=== PATIENT | female | born 1990 | race Caucasian/White ===

== ENCOUNTER 2017-04-15 11:11 | Observation (INO) | payer MEDICAID ==
--- NOTE | 2017-04-15 12:22 | EDPHY ---
H & P Time Seen by Provider: 04/15/17 11:45 HPI/ROS: CHIEF COMPLAINT: Possible ectopic HISTORY OF PRESENT ILLNESS: Patient presents with complaints of possible ectopic . She reports right lower quadrant cramping pain, in spotting. Home positive test 3 days ago. Last menstrual period was March 11. This makes her with previous miscarriage. She noticed some increasing spotting and cramping, [facility] a pelvic exam and ultrasound. Ultrasound was inconclusive but suggested ectopic . Sent her to our facility for higher level of care. She has minimal pain. No vomiting. Bleeding less than 1 pad per several hours she says. No other associated complaints or modifying factors NPO as of 10:30 a.m. REVIEW OF SYSTEMS: Ten systems reviewed and are negative unless otherwise noted in the HPI PCP: No PCP. SPECIALISTS: [facility] PAST MEDICAL HISTORY: Previous spontaneous miscarriage a 4 month cessation, 2014 PAST SURGICAL HISTORY: No surgical history SOCIAL HISTORY: Nonsmoker. Occasional marijuana use. Works as a massage therapist. FAMILY HISTORY: Noncontributory EXAMINATION General Appearance: Alert, no distress Head: normocephalic, atraumatic Eyes: Pupils equal and round, no conjunctival pallor or injection ENT, Mouth: Mucous membranes moist Neck: Normal inspection, supple, non-tender Respiratory: Lungs are clear to auscultation. no wheezing, rhonchi or crackles Cardiovascular: Regular rate and rhythm. no murmur Gastrointestinal: Abdomen is soft and nondistended. Mild tenderness in the lower quadrants. No guarding. No tympany rigidity. : Pelvic exam deferred as it [facility] Neurological: A&O, nonfocal, normal gait Skin: Warm and dry, no rash plan. no petechiae or purpura Extremities: Nontender, no pedal edema Psychiatric: Mood and affect normal DIFFERENTIAL DIAGNOSES: Including but not limited to ectopic , heterotopic , intrauterine , missed , incomplete , appendicitis MDM: 11:45 a.m. Pelvic pain in early . Ultrasound pre-hospital suggested a possible right-sided adnexal structure with no confirmation of intrauterine . Patient was sent here for ectopic rule out. Pelvic exam was performed by that provider. Vital signs are within normal limits. She is awake alert no acute distress. No signs of hemorrhaging. I have ordered laboratory studies, OB ultrasound and Rh type. 12:40 p.m. Notified by radiologist Dr. Connell. There is a right-sided viable tubal consistent with gestational age. There is a yolk sac. There is no injury you visualized. Remainder of findings discussed as well. I have paged the on-call OB physician for consultation. The patient has been a very difficult IV access and they are still attempting to obtain IV access. 1:10 p.m. Case discussed with Dr. Garcia. She will evaluate the patient but is requesting HCG quantitative value. They are still attempting to obtain IV access. 1:35 p.m. CBC unremarkable. Chemistry unremarkable. Quantitative level pending. Rh type pending. OB physician is at bedside 1:45 p.m. Case discussed with Dr. Garcia. She has evaluated the patient emergency department. She informs me that the patient disposition is pending as she needs to discuss with her colleagues. Given the high presence of a heartbeat methotrexate is relatively contraindicated. She will discuss further with colleague for disposition planning. 1:55 p.m. Patient is a positive blood type, thus I will discontinue the RhoGAM ordered. Her quantitative HCG is 3460 2:15 p.m. Contacted by OB physician Dr. Garcia. She informs the patient taking the operating room later this evening with Dr. Bourne. Tentatively scheduled for 7: 00 p.m. I have re-evaluated the patient and informed her of this. We discussed strict NPO. We discussed her laboratory studies. She has a positive and I informed her of this. She had multiple questions regarding the surgery that I will defer for the surgeon to answer. At this time she is stable with no acute distress, normal vital signs. She is admitted in stable condition. SUPERVISION: Patient was independently examined, but I discussed the case with my secondary supervising physician Dr. Francois Smoking Status: Never smoked Constitutional: Initial Vital Signs Temperature (C) 97.5 F 04/15/17 11:20 Heart Rate 66 04/15/17 11:20 Respiratory Rate 16 04/15/17 11:20 Blood Pressure 106/64 04/15/17 11:20 O2 Sat (%) 97 04/15/17 11:20 O2 Delivery Mode Room Air Allergies/Adverse Reactions: No Known Allergies Allergy (Unverified 04/15/17 11:21) Home Medications: Medication Instructions Recorded NK [No Known Home Meds] 04/15/17 MDM/Departure - MDM Imaging Results: Imaging Impressions Obstetrics Ultrasound 04/15/17 11:33 Impression: 1. There is a right adnexal ectopic containing a viable embryo at 5 weeks 6 days gestation. There is no evidence of ovarian torsion, and there is only a trace amount of right adnexal free fluid. 2. Heterogeneous endometrial thickening measuring 21 mm, with no evidence of a concurrent IUP. Findings were discussed with Yunior Delvalle PA-C at 12:37 PM, on 04/15/2017. - Depart Disposition: [facility] Inpatient Acute Clinical Impression: Ectopic without intrauterine Qualifiers: Location of ectopic : tubal Laterality: right Qualified Code(s): O00.101 - Right tubal without intrauterine Condition: Good Referrals: NONE *PRIMARY CARE P,. [Primary Care Provider] - As per Instructions
[2017-04-15 13:21] LABS: PLATELET COUNT 265 10^3/uL (150-400)
--- NOTE | 2017-04-15 14:07 | PDCONSULT ---
Life Skills Educator Note: Physician requesting consult: Roberto Caicedo Md Consulting Physician: Laly Levy MD Diagnosis: Right ectopic with cardiac activity Labs hcg 3,460 Please see dictated H&P Laboratory Results 04/15/17 13:05 04/15/17 13:05 04/15/17 04/15/17 04/15/17 13:05 13:05 13:05 WBC 7.00 10^3/uL 10^3/uL (3.80-9.50) RBC 4.27 10^6/uL 10^6/uL (4.18-5.33) Hgb 13.4 g/dL g/dL (12.6-16.3) Hct 40.3 % % (38.0-47.0) MCV 94.4 fL fL (81.5-99.8) MCH 31.4 pg pg (27.9-34.1) MCHC 33.3 g/dL g/dL (32.4-36.7) RDW 12.0 % % (11.5-15.2) Plt Count 265 10^3/uL 10^3/uL (150-400) MPV 10.7 fL fL (8.7-11.7) Neut % (Auto) 54.3 % % (39.3-74.2) Lymph % (Auto) 35.0 % % (15.0-45.0) [place] % (Auto) 7.0 % % (4.5-13.0) Eos % (Auto) 2.6 % % (0.6-7.6) Baso % (Auto) 1.0 % % (0.3-1.7) Nucleat RBC Rel Count 0.0 % % (0.0-0.2) Absolute Neuts (auto) 3.80 10^3/uL 10^3/uL (1.70-6.50) Absolute Lymphs (auto) 2.45 10^3/uL 10^3/uL (1.00-3.00) Absolute Monos (auto) 0.49 10^3/uL 10^3/uL (0.30-0.80) Absolute Eos (auto) 0.18 10^3/uL 10^3/uL (0.03-0.40) Absolute Basos (auto) 0.07 10^3/uL 10^3/uL (0.02-0.10) Absolute Nucleated RBC 0.00 10^3/uL 10^3/uL (0-0.01) Immature Gran % 0.1 % % (0.0-1.1) Immature Gran # 0.01 10^3/uL 10^3/uL (0.00-0.10) Sodium 142 mEq/L mEq/L (135-145) Potassium 4.4 mEq/L mEq/L (3.5-5.2) Chloride 108 mEq/L mEq/L (97-110) Carbon Dioxide 21 mEq/l L mEq/l (22-31) Anion Gap 13 mEq/L mEq/L (8-16) BUN 7 mg/dL mg/dL (7-23) Creatinine 0.5 mg/dL L mg/dL (0.6-1.0) Estimated GFR > 60 Glucose 83 mg/dL mg/dL (70-100) Calcium 9.1 mg/dL mg/dL (8.5-10.4) Lipase 94 IU/L IU/L (23-300) Beta HCG, Quant 3460.30 mIU/mL H mIU/mL (0.00-4.83) Urine Color Urine Appearance Urine pH Ur Specific [place] Urine Protein Urine Ketones Urine Blood Urine Nitrate Urine Bilirubin Urine Urobilinogen Ur Leukocyte Esterase Urine RBC Urine WBC Ur Epithelial Cells Urine Mucus Urine Glucose Patient ABO/Rh A POSITIVE 04/15/17 12:00 WBC RBC Hgb Hct MCV MCH MCHC RDW Plt Count MPV Neut % (Auto) Lymph % (Auto) [place] % (Auto) Eos % (Auto) Baso % (Auto) Nucleat RBC Rel Count Absolute Neuts (auto) Absolute Lymphs (auto) Absolute Monos (auto) Absolute Eos (auto) Absolute Basos (auto) Absolute Nucleated RBC Immature Gran % Immature Gran # Sodium Potassium Chloride Carbon Dioxide Anion Gap BUN Creatinine Estimated GFR Glucose Calcium Lipase Beta HCG, Quant Urine Color PALE YELLOW Urine Appearance CLEAR Urine pH 7.0 (5.0-7.5) Ur Specific [place] 1.006 (1.002-1.030) Urine Protein NEGATIVE (NEGATIVE) Urine Ketones NEGATIVE (NEGATIVE) Urine Blood 2+ H (NEGATIVE) Urine Nitrate NEGATIVE (NEGATIVE) Urine Bilirubin NEGATIVE (NEGATIVE) Urine Urobilinogen NEGATIVE EU EU (0.2-1.0) Ur Leukocyte Esterase NEGATIVE (NEGATIVE) Urine RBC 1-3 /hpf /hpf (0-3) Urine WBC 1-3 /hpf /hpf (0-3) Ur Epithelial Cells TRACE /lpf /lpf (NONE-1+) Urine Mucus TRACE /lpf /lpf (NONE-1+) Urine Glucose NEGATIVE (NEGATIVE) Patient ABO/Rh
[2017-04-15] MEDS ORDERED: LR 1,000 ML IV ONE ×2 (14:10→19:03)
--- NOTE | 2017-04-15 14:40 | GHP ---
[f rep st] PREOP HISTORY AND PHYSICAL DATE OF ADMISSION: 04/15/2017 HISTORY OF PRESENT ILLNESS: Patient is a 27-year-old 2, para 0, last menstrual period approximately 6 weeks ago who presents for cramping and right lower quadrant pain and bleeding. Patient came into the emergency room after [facility]. Patient had known 2 weeks ago that she was with a confirmed test. [facility] and this morning was noted to have concerns for an ectopic . Patient arrived here to the emergency room complaining of right lower quadrant pain. She received an ultrasound and a quantitative hCG level. PAST MEDICAL HISTORY: Per patient was negative. PHYSICAL EXAMINATION: LUNGS: Clear to auscultation bilateral. HEART: Regular rate and rhythm. ABDOMEN: Nontender. PELVIC EXAM: Speculum was placed. There was no bleeding in the vagina. mucus discharge. Cervical os appeared closed. The speculum was removed and bimanual exam was performed. There was no cervical motion tenderness. The right adnexa showed some mild fullness. LABORATORY STUDIES: Her quantitative hCG level was 3,460. Her hemoglobin and hematocrit are 13.4 and 40.3 with a platelet count of 265, respectively. IMAGING STUDIES: The patient had a transvaginal ultrasound which revealed a right adnexal ectopic containing an embryo at 5 weeks 6 days. No evidence of ovarian torsion and there was only a trace amount of free fluid. It was also noted that the ectopic had a gestational sac and the embryo with a heart rate of 174. ASSESSMENT: 1. 27-year-old G0, P0 with a right ectopic . 2. Right ectopic with positive cardiac activity which is contraindicated for methotrexate. PLAN: Plan is for patient to undergo a laparoscopic right salpingectomy with Dr. Bourne later on this evening, patient at approximately 10:30 or 11:00 today. All risks and benefits of the procedure were discussed with patient. Patient would like to avoid surgery at this time but discussed the contraindication with the cardiac activity. /[id number]/MODL MTDD
--- NOTE | 2017-04-15 15:14 | ASMTLACE ---
ALICIA Acuity / Level of Answers: Yes Care: Did the patient have an inpatient admission? # of Emergency department Answers: 1-2 visits in the last 6 months Score: 4 Date Signed: 04/15/2017 03:13 PM Electronically Signed By:Karely Cronin RN
--- NOTE | 2017-04-15 19:25 | PDANEPAE ---
ANE History of Present Illness Ectopic ANE Past Medical History - Pulmonary History Hx Sleep Apnea: No ANE Review of Systems Review of Systems: ANE Patient History - Allergies Allergies/Adverse Reactions: No Known Allergies Allergy (Unverified 04/15/17 11:21) - Home Medications Home medications: home medication list seen and reviewed Home Medications: Herbals/Supplements -Info Only 1 ea PO DAILY 04/15/17 [Last Taken 1 Week Ago ~] - NPO status NPO Since - Liquids (Date): 04/15/17 NPO Since - Liquids (Time): 10:30 NPO Since - Solids (Date): 04/15/17 NPO Since - Solids (Time): 10:30 - Anes Hx Anes Hx: no prior problems (Dental anesthesia only) - Smoking Hx Smoking Status: Never smoked ANE Labs/Vital Signs - Labs Result Diagrams: 04/15/17 13:05 04/15/17 13:05 - Vital Signs Blood Pressure: 93/67 Heart Rate: 58 Respiratory Rate: 16 O2 Sat (%): 96 Height: 162.56 cm Weight: 61.235 kg ANE Physical Exam - Airway Neck exam: FROM Mallampati Score: Class 2 Mouth exam: normal dental/mouth exam - Pulmonary Pulmonary: no respiratory distress - Cardiovascular Cardiovascular: regular rate and rhythym - ASA Status ASA Status: II, E ANE Anesthesia Plan Anesthesia Plan: general endotracheal anesthesia
[2017-04-15] MEDS ORDERED: BUPIVACAINE/EPI 0.5% 30 ML SDV ONE (21:41)
[2017-04-15] MEDS ORDERED: LIDOCAINE 2% 5 ML SDV ONE (21:51)
[2017-04-15] MEDS ORDERED: fentaNYL 100 MCG/2 ML INJ ONE ×3 (21:51→23:31)
[2017-04-15] MEDS ORDERED: PROPOFOL 200 MG/20 ML VIAL ONE (21:51)
[2017-04-15] MEDS ORDERED: ROCURONIUM 50 MG/5 ML VIAL ONE (21:52)
[2017-04-15] MEDS ORDERED: ceFAZolin 1 GM in NS 100 ML IV ONE (21:57)
[2017-04-15] MEDS ORDERED: ceFAZolin 1 GM VIAL ONE (22:14)
[2017-04-15] MEDS ORDERED: DEXAMETHASONE 4 MG/ML VIAL ONE (22:33)
[2017-04-15] MEDS ORDERED: ONDANSETRON 4 MG/2 ML VIAL ONE ×2 (22:33→23:31)
[2017-04-15] MEDS ORDERED: ONDANSETRON 4 MG/2 ML VIAL IVP PRN (22:58)
[2017-04-15] MEDS ORDERED: NALOXONE HCL 0.4 MG/ML INJ IVP PRN (22:58)
[2017-04-15] MEDS ORDERED: PROMETHAZINE HCL 25 MG/ML INJ IVP PRN (22:58)
[2017-04-15] MEDS ORDERED: fentaNYL 100 MCG/2 ML INJ IVP PRN (22:58)
[2017-04-15] MEDS ORDERED: SUGAMMADEX SODIUM 200 MG/2 ML VIAL IVP ONE (23:12)
--- NOTE | 2017-04-15 23:33 | POSTANESTH ---
Post Anesthetic Evaluation Cardiovascular Status: Normal, Stable Respiratory Status: Normal, Stable Level of Consciousness/Mental Status: Can Participate in Eval Pain Control: Adequate, Prn Tx Ordered Nausea/Vomiting Control: Adequate, Prn Tx Ordered Complications Possibly Related to Anesthesia: None Noted
--- NOTE | 2017-04-15 23:34 | POSTOPPROG ---
Post Op Note Date of Operation: 04/15/17 Surgeon: Anuja Bourne Anesthesiologist: Art Jorgensen MD Anesthesia: GET(General Endotracheal) Pre-op Diagnosis: right ectopic Post-op Diagnosis: same Indication: 5-6 wks preg, spotting, u/s with empty ut, GS, FP and FCA in right tube Procedure: laparoscopic right salpingetomy Findings: nl uterus, nl ovaries bilat, left tube, right tube distended. sm bld in cul Inf/Abcess present in the surg proc area at time of surgery?: No Depth: Organ Space EBL: Minimal Total fluids administered: 600ml Complications: none Drains: Constavac Specimen(s): right tube with ectopic
[2017-04-15] MEDS ORDERED: ONDANSETRON DISINTEGRATING 4 MG TAB PO PRN (23:41)
[2017-04-15] MEDS ORDERED: KETOROLAC 30 MG/1 ML SDV ONE (23:46)
[2017-04-15] MEDS: KETOROLAC 30 MG/1 ML SDV IVP SCH (23:48)
[2017-04-16] MEDS: HYDROCODONE/APAP 5/325 TAB PO PRN ×2 (04:21→09:58)
[2017-04-16] MEDS: KETOROLAC 30 MG/1 ML SDV IVP SCH (06:02)
[2017-04-16 09:08] VITALS: BP 86/54; PULSE 57; RESP 16; TEMP 98; O2SAT 96
--- NOTE | 2017-04-16 10:19 | PDDCSUM ---
Discharge Summary Discharge Summary: S) Pt doing well, she reports min pain, states relieved with norco. She is ambulating without difficulty. She reports passing gas, denies BM at this time. She denies any dizziness/lightheadedness. She denies any vaginal bleeding. She desires d/c home today. States she will use condoms for control. O) VSS, hypotensive- asymptomatic Exam: constitutional: WN/WF HEENT: supple, atraumatic, normocephalic Chest: CTA-B Heart: RRR, no murmur Abdomen: soft, nontender, +BSx4, incision bandaids C/D/I, no exudate, no erythema Extremities: WNL, neg edema, negative susanna's sign Neuro: grossly normal Psych: appropriate A)27yo s/p ectopic POD#1 P) Routine post op care discussed danger/warning S&S RTO in 2 weeks for post op visit contraceptive education- desires condoms reviewed with Dr. Simpson- agrees with POC
== END 2017-04-16 12:10 | disposition home or self-care (01) ==
LOC: FOB 15:30
PROVIDERS: ADMIT Obstetrics & Gynecology; ATTEND Obstetrics & Gynecology
PROC: 0UT54ZZ Resection of Right Fallopian Tube, Percutaneous Endoscopic Approach (ICD-10-PCS; principal; 2017-04-15 18:15)
DX: O00.101 Right tubal pregnancy without intrauterine pregnancy (principal)
CPT/HCPCS: 59151; 76801; G0378; J0690; J1100; J1885; J2405; J2704; J3010